=== PATIENT | male | born 1950 ===

== ENCOUNTER 2023-03-08 08:17 | Day surgery (SDC) | payer MEDICARE ==
[2023-03-04 12:30] VITALS: BMI 29.8
[2023-03-08] MEDS ORDERED: Bupivacaine HCl 0.5%/Epinephrine 1:200,000/PF 30 ml Vial ONE ×2 (09:26→12:25)
[2023-03-08] MEDS ORDERED: Bupivacaine PF 0.5% 30 ML VIAL ONE (09:26)
[2023-03-08 09:28] LABS: Hemoglobin 13.7 g/dL (13.5-17.5); Mean Corpuscular HGB CONC 31.3 g/dL (32.0-36.0); Mean Corpuscular Hemoglobin 24.2 pg (27.0-33.0); Mean Corpuscular Volume 77.5 fl (81.2-95.1); Mean Platelet Volume 9.3 fl (7.4-10.4); Platelet Count 201 10x3/uL (130-400); RBC Distribution Width 23.1 % (11.5-14.5); Red Blood Cell (RBC) Count 5.65 10x6/uL (4.32-5.72)
[2023-03-08 10:07] LABS: Carbon Dioxide 28 mmol/L (23-31); Chloride 101 mmol/L (98-107); Potassium 3.8 mmol/L (3.5-5.1); Sodium 140 mmol/L (136-145)
[2023-03-08 10:08] LABS: Anion Gap 15 mmol/L (10-20); BUN (Urea Nitrogen) 9 mg/dL (8.4-25.7); Calc. Creatinine Clearance 101 mL/min (70-130); Calcium 9.5 mg/dL (7.6-10.4); Estimated GFR 91; Glucose 104 mg/dL (80-115)
[2023-03-08] MEDS ORDERED: CEFAZOLIN 2 GM VIAL ONE (10:39)
[2023-03-08] MEDS ORDERED: PROPOFOL 20 ML ONE (10:51)
[2023-03-08] MEDS ORDERED: ePHEDrine Sulfate 50 MG/10 ML VIAL ONE (11:05)
[2023-03-08] MEDS ORDERED: PHENYLEPHRINE-NS 100 MCG/ML 10 ML SYRINGE ONE (11:55)
[2023-03-08] MEDS ORDERED: Dexamethasone 20 MG/5 ML VIAL ONE (12:07)
[2023-03-08] MEDS ORDERED: Ondansetron PF 4 MG/2 ML Vial ONE (12:07)
[2023-03-08] MEDS ORDERED: fentaNYL 50 mcg/mL 1 mL Vial ONE (12:58)
[2023-03-08] MEDS ORDERED: HYDROcodone/Acetaminophen 10/325 mg Tablet ONE (13:25)
[2023-03-08] MEDS ORDERED: Ketorolac Tromethamine 30 MG/ML VIAL ONE (13:25)
== END 2023-03-08 14:05 | disposition home or self-care (01) ==
LOC: CSHSDC 08:17
PROVIDERS: ATTEND Orthopaedic Surgery
PROC: 0RRS0JZ Replacement of Right Carpometacarpal Joint with Synthetic Substitute, Open Approach (ICD-10-PCS; principal; 2023-03-08)
DX: M18.11 Unilateral primary osteoarthritis of first carpometacarpal joint, right hand (principal); I10 Essential (primary) hypertension; E78.5 Hyperlipidemia, unspecified; I25.10 Atherosclerotic heart disease of native coronary artery without angina pectoris; J44.9 Chronic obstructive pulmonary disease, unspecified; F17.200 Nicotine dependence, unspecified, uncomplicated; Z79.899 Other long term (current) drug therapy; Z95.0 Presence of cardiac pacemaker
CPT/HCPCS: 25447; 80048; 85027; J3010; C1762; J1100; J1885; J2405; J2704; S0020

== ENCOUNTER 2023-07-16 09:07 | Emergency (ER) | payer MEDICARE | END 2023-07-16 11:08 | disposition home or self-care (01) | LOC: CSHERS 09:07 | DX: S93.601A Unspecified sprain of right foot, initial encounter (principal); I50.9 Heart failure, unspecified; F17.210 Nicotine dependence, cigarettes, uncomplicated; X58.XXXA Exposure to other specified factors, initial encounter ==